=== PATIENT | male | born 1990 | race American Indian/Alaskan Native ===

== ENCOUNTER 2021-04-10 08:49 | Emergency (ER) | payer SELFPAY ==
[2021-04-10 11:23] VITALS: BP 113/79
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
== END 2021-04-10 13:39 | disposition home or self-care (01) ==
LOC: ED 08:49
DX: Z13.9 Encounter for screening, unspecified (principal)
CPT/HCPCS: 99281